=== PATIENT | female | born 1925 | race Caucasian/White ===

== ENCOUNTER 2016-07-08 17:21 | Emergency (ER) | payer OTHER ==
--- NOTE | 2016-07-08 20:50 | ED ORDER SUMMARY ---
..... Patient: KLAUS PEREZ OrderSheet [facility] VisitID: [id number] [place] [address] 89y, F Registration Date/Time: 07/08/2016 ORDER SHEET Weight: 92.9 kg (stated) Allergies: No Known Drug Allergy GENERAL ORDERS: UA-Culture if indicated Urgent (minicath) (18:30 07/08/2016 Jaja STRONG) (Ack 18:33 John) PICC Insertion (19:55 07/08/2016 Jaja STRONG) (Ack 20:16 Jessica) MEDICATION ORDERS: IV FLUIDS: Invanz IV 1 gm/50mL (NOW) (20:13 07/08/2016 Jaja STRONG) (20:39 Judson R.N.) ORDER SHEET NOTES: [Electronically signed by Jc Clements MD (14:11 07/09/2016)] [Electronically signed by Dejon Becker R.N. (20:18 07/09/2016)] [Electronically locked/signed by Dejon Becker R.N. (20:18 07/09/2016)]
--- NOTE | 2016-07-08 20:50 | ED NURSING NOTES ---
Clinical Report - Nurses [facility] [address] [place] [address] 07/08/2016 17:21 Patient: KLAUS PEREZ TRIAGE Triage time 17:50 Jul 08 2016. Acuity: LEVEL 4. Chief Complaint: (need IV). --17:57 Dejon Becker R.N. 17:50 07/08/16. BP: 113/80. HR: 71. RR: 18. O2 saturation: 96%. Temp: 98 F. Pain level now 11/07. --17:57 Dejon Becker R.N. Weight: 92.9 kg stated. Height/Length: 60 inches Per Patient. BMI: 40. --17:57 Dejon Becker R.N. Medications Carvedilol Phosphate ER Oral. --17:53 Dejon Becker R.N. Cefuroxime Axetil Oral. --17:53 Dejon Becker R.N. Cholecalciferol Oral. --17:53 Dejon Becker R.N. Citalopram Hydrobromide Oral. --17:54 Dejon Becker R.N. Clopidogrel Bisulfate Oral. --17:54 Dejon Becker R.N. Cranberry Oral. --17:54 Dejon Becker R.N. Furosemide Oral. --17:54 Dejon Becker R.Kevin. Gabapentin Oral. --17:54 Dejon Becker R.N. Levothyroxine Sodium Oral. --17:55 Dejon Becker R.N. Miconazole Nitrate External. --17:55 Dejon Becker R.N. Mirtazapine Oral. --17:55 Dejon Becker R.N. Potassium Chloride Oral. --17:55 Dejon Becker R.N. Primidone Oral. --17:55 Dejon Becker R.N. Probiotic. --17:56 Dejon Becker R.N. Rifaximin Oral. --17:56 Dejon Becker R.N. Tramadol HCL Oral. --17:56 Dejon Becker R.N. Allergies No Known Drug Allergy. --17:56 Dejon Becker R.N. History Arrived by private vehicle. Historian: patient and family. ( Pt arrives from clinic was told she needed an IV for 14 day course of abx for UTI. Pt is alert and oriented in no obvious distress). 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 SOCIAL HX: Never smoker. No alcohol use or drug use. --17:57 Dejon Becker R.N. PROBLEMS: Pneumonia. Abnormal Test. Chest Pain. Arrhythmia. Atrial Fibrillation. Thyroid Disease. Hypertension. Hyperlipidemia. --17:56 Dejon Becker R.N. Interventions ID band on patient. To treatment room. --17:57 Dejon Becker R.N. NURSING PROGRESS NOTES Monitoring of patient in place. Patient gowned. Reassurance given. Two patient identifiers checked. Call light placed in reach. Side rails up x 1. ( straight cath performed sterile technique, pt tolerated well). --18:43 Dejon Becker R.N. 18:43 07/08/16. BP: 124/86. HR: 96. RR: 18. O2 saturation: 96%. --18:44 Dejon Becker R.N. 20:39 07/08/2016 Site #1 started via IV in the right hand with an 22g angiocath, with aseptic technique and good blood return; three attempts. Saline lock flushed with saline. --20:39 Dejon Becker R.N. 20:39 07/08/2016 Invanz IVP 1 gm given over 30 minute(s) via site #1. Allergies verified and confirmed 5 rights. IV patency established. IV site checked: no pain, redness, or swelling. IV flushed thoroughly pre- and post-medication administration. IVP given by RN. --20:39 Dejon Becker R.N. DISPOSITION / DISCHARGE Departure time: 2113. Condition at departure: improved. No learning barriers present. Discharge instructions provided and reviewed with the patient and family. Reviewed referrals (PCP). The patient was discharged by the physician. She was discharged home and accompanied by family. She left the Emergency Department in a wheelchair and via private vehicle. Family member driving. ( Pt left with family, verbalized understanding to follow up with PCP in the AM regarding follow up IV abx). --:27 Dejon Becker R.N. 21:25 07/08/16. BP: 124/86. HR: 68. RR: 18. O2 saturation: 98%. Temp: 98.8 F. Pain level now 5/10. --21:27 Dejon Becker R.N. 21:27 07/08/2016 Site #1 removed upon discharge. Bandage applied. --:27 Dejon Becker R.N. Locked/Released at 07/09/2016 20:19 by Dejon Becker R.N.
--- NOTE | 2016-07-08 20:50 | ED CLINICAL REPORT ---
Clinical Report - Physicians/Mid Levels [facility] [address] [place] [address] 07/08/2016 17:21 Patient: KLAUS PEREZ Time Seen: 18:10. Arrived- By private vehicle. Historian- patient. CPT: ER phys charges level 4 (#[id number]). HISTORY OF PRESENT ILLNESS Chief Complaint: Sent to ER for persistent UTI that has culture results showing E. Coli resistent to all po meds. Pt. is with her Son-in-Law who states that they were sent to the ER to get a Picc line and set up for home infusion of IV antibiotics. ( No call came into the ER from the above described clinic stating the problem and need for treatment.). This started today and is still present. At its maximum, severity described as moderate. When seen in the E.D., severity described as moderate. Modifying factors. Not worsened by anything. Not relieved by anything. (Dysuria). Similar symptoms previously: Several times, as bad. Diagnosis: (UTI). Recent medical care: Not recently seen/assessed. REVIEW OF SYSTEMS No fever, abdominal pain, nausea, vomiting or diarrhea. No chills, skin rash, back pain, chills or fatigue. No fever or weakness. She has had difficulty with urination. mild dysuria. All systems otherwise negative, except as recorded above. PAST HISTORY Pneumonia. Abnormal Test. Chest Pain. Arrhythmia. Atrial Fibrillation. Thyroid Disease. Hypertension. Hyperlipidemia. Medications: Tramadol HCL Oral. Rifaximin Oral. Probiotic. Primidone Oral. Potassium Chloride Oral. Mirtazapine Oral. Miconazole Nitrate External. Levothyroxine Sodium Oral. Gabapentin Oral. Furosemide Oral. Cranberry Oral. Clopidogrel Bisulfate Oral. Citalopram Hydrobromide Oral. Cholecalciferol Oral. Cefuroxime Axetil Oral. Carvedilol Phosphate ER Oral. Allergies: No Known Drug Allergy. SOCIAL HISTORY Never smoker. No alcohol use or drug use. ADDITIONAL NOTES The nursing notes have been reviewed. PHYSICAL EXAM Vital Signs: 07/08/2016 17:50 BP: 113/80. HR: 71. RR: 18. O2 saturation: 96%. Temp: 98 F. Appearance: Alert. No acute distress. Eyes: Eyes normal inspection. ENT: Pharynx normal. Neck: Normal inspection. CVS: Normal heart rate and rhythm. Heart sounds normal. Pulses normal. Respiratory: No respiratory distress. Breath sounds normal. Chest nontender. Abdomen: No visible injury. Soft and nontender. Back: Normal inspection. No CVA tenderness. Skin: Normal skin color. No rash. Extremities: Extremities exhibit normal ROM. Neuro: Oriented X 3. LABS, X-RAYS, AND EKG Laboratory Tests: UA-Culture if indicated: (GERARDO: 07/08/2016 18:40) ( MsgRcvd 07/08/2016 19:05) Final results Test Result Flag Units (Reference) URINE COLOR YELLOW URINE APPEARANCE CLEAR URINE GLUCOSE NEGATIVE (NEGATIVE) URINE BILIRUBIN NEGATIVE (NEGATIVE) URINE KETONE NEGATIVE (NEGATIVE) URINE SPECIFIC GRAVITY 1.010 (1.010-1.030) URINE PH 6.0 (5.0-8.0) URINE PROTEIN NEGATIVE (NEGATIVE) URINE UROBILINOGEN 0.2 EU/dL (0.2-1.0) URINE NITRITE POSITIVE (NEGATIVE) URINE BLOOD NEGATIVE (NEGATIVE) URINE LEUK ESTERASE NEGATIVE (NEGATIVE) URINE RBC 1-3 rbc/hpf (0-1) URINE WBC 5-10 wbc/hpf (0-1) URINE EPITHELIAL CELLS 0-1 EPI/hpf (0-5) URINE BACTERIA MANY (4+) (NONE SEEN) URINE COMMENT CULTURE INDICATED URINE CULTURES ARE SET-UP BASED ON THE FOLLOWING CRITERIA:POSITIVE NITRITEPOSITIVE LEUKOCYTE ESTERASEGREATER THAN 10 WHITE BLOOD CELLSMODERATE (2+) OR GREATER BACTERIA Culture, Urine: (GERARDO: 07/08/2016 18:40) ( MsgRcvd 07/09/2016 10:25) IP Test Result Flag Units (Reference) CULTURE, URINE DATE: 07/09/16 PRELIM REPORT: PRELIMINARY REPORT #1 -- COLI QUANTITATIVE URINE GROWTH: GREATER THAN 100,000 CFU/mL ID AND SENS TO FOLLOW: IDENTIFICATION AND SENSITIVITY TO FOLLOW . PROGRESS AND PROCEDURES Course of Care: Reviewed lab results brought in by patient. A UA done 5 days ago showed a UTI in the office so ceftin was started. The culture results from that urine came back today showing resistence to some but not all cephalosporins. Pt clinically did not think she was much better since starting the ceftin. A UA was done in the ER to confirm a UTI still being present after the ceftin treatment. The UA was positive in the ER so it was assumed to be caused by the same resistant E.Coli cultured 5 days ago. non-toxic IV heplock Invanz 1g IV Patient is stable. Pt made aware of the need to get PCP to set up Picc and abx tomorrow. This cannot be done in the ER without the hospitalist taking over care. Patient/family counseled. Disposition: Discharged. Condition: stable. CLINICAL IMPRESSION Resistant E. Coli urinary tract infection. In need of out patient IV antibiotics. INSTRUCTIONS Warnings: Further evaluation is necessary. Follow-up: Follow up with your doctor tomorrow in one day. Call for the next available appointment. Reason for referral: IV antibiotics for home. Understanding of the discharge instructions verbalized by patient and family. Expected course of illness and discharge instructions reviewed with and understanding was verbalized by patient and relative (Son-in-Law). (Electronically signed by Jc Clements MD 07/09/2016 14:11) Addenda for KLAUS PEREZ VisitID: [id number] Date: 07/08/2016 07/09/2016 19:43 discharge instructions were for pt to follow-up with her doctor in 1 day for referral for IV antibiotics @ home for her resistant UTI; was given Invanz 1 gm IVPB during her ED visit (Electronically signed by Carol Mireles R.N. - 07/09/2016 19:43)
--- NOTE | 2016-07-08 20:50 | ED NURSING NOTES ---
Clinical Report - Nurses [facility] [address] [place] [address] 07/08/2016 17:21 Patient: KLAUS PEREZ TRIAGE Triage time 17:50 Jul 08 2016. Acuity: LEVEL 4. Chief Complaint: (need IV). --17:57 Dejon Becker R.N. 17:50 07/08/16. BP: 113/80. HR: 71. RR: 18. O2 saturation: 96%. Temp: 98 F. Pain level now 11/07. --17:57 Dejon Becker R.N. Weight: 92.9 kg stated. Height/Length: 60 inches Per Patient. BMI: 40. --17:57 Dejon Becker R.N. Medications Carvedilol Phosphate ER Oral. --17:53 Dejon Becker R.N. Cefuroxime Axetil Oral. --17:53 Dejon Becker R.N. Cholecalciferol Oral. --17:53 Dejon Bekcer R.N. Citalopram Hydrobromide Oral. --17:54 Dejon Becker R.N. Clopidogrel Bisulfate Oral. --17:54 Dejon Becker R.N. Cranberry Oral. --17:54 Dejon Becker R.N. Furosemide Oral. --17:54 Dejon Becker R.Kevin. Gabapentin Oral. --17:54 Dejon Becker R.N. Levothyroxine Sodium Oral. --17:55 Dejon Becker R.N. Miconazole Nitrate External. --17:55 Dejon Becker R.N. Mirtazapine Oral. --17:55 Dejon Becker R.N. Potassium Chloride Oral. --17:55 Dejon Becker R.N. Primidone Oral. --17:55 Dejon Becker R.N. Probiotic. --17:56 Dejon Becker R.N. Rifaximin Oral. --17:56 Dejon Becker R.N. Tramadol HCL Oral. --17:56 Dejon Becker R.N. Allergies No Known Drug Allergy. --17:56 Dejon Becker R.N. History Arrived by private vehicle. Historian: patient and family. ( Pt arrives from clinic was told she needed an IV for 14 day course of abx for UTI. Pt is alert and oriented in no obvious distress). 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 SOCIAL HX: Never smoker. No alcohol use or drug use. --17:57 Dejon Becker R.N. PROBLEMS: Pneumonia. Abnormal Test. Chest Pain. Arrhythmia. Atrial Fibrillation. Thyroid Disease. Hypertension. Hyperlipidemia. --17:56 Dejon Becker R.N. Interventions ID band on patient. To treatment room. --17:57 Dejon Becker R.N. NURSING PROGRESS NOTES Monitoring of patient in place. Patient gowned. Reassurance given. Two patient identifiers checked. Call light placed in reach. Side rails up x 1. ( straight cath performed sterile technique, pt tolerated well). --18:43 Dejon Becker R.N. 18:43 07/08/16. BP: 124/86. HR: 96. RR: 18. O2 saturation: 96%. --18:44 Dejon Becker R.N. 20:39 07/08/2016 Site #1 started via IV in the right hand with an 22g angiocath, with aseptic technique and good blood return; three attempts. Saline lock flushed with saline. --20:39 Dejon Becker R.N. 20:39 07/08/2016 Invanz IVP 1 gm given over 30 minute(s) via site #1. Allergies verified and confirmed 5 rights. IV patency established. IV site checked: no pain, redness, or swelling. IV flushed thoroughly pre- and post-medication administration. IVP given by RN. --20:39 Dejon Becker R.N. DISPOSITION / DISCHARGE Departure time: 2113. Condition at departure: improved. No learning barriers present. Discharge instructions provided and reviewed with the patient and family. Reviewed referrals (PCP). The patient was discharged by the physician. She was discharged home and accompanied by family. She left the Emergency Department in a wheelchair and via private vehicle. Family member driving. ( Pt left with family, verbalized understanding to follow up with PCP in the AM regarding follow up IV abx). --:27 Dejon Becker R.N. 21:25 07/08/16. BP: 124/86. HR: 68. RR: 18. O2 saturation: 98%. Temp: 98.8 F. Pain level now 5/10. --21:27 Dejon Becker R.N. 21:27 07/08/2016 Site #1 removed upon discharge. Bandage applied. --:27 Dejon Becker R.N. Locked/Released at 07/09/2016 20:19 by Dejon Becker R.N.
--- NOTE | 2016-07-08 20:50 | ED CLINICAL REPORT ---
Clinical Report - Physicians/Mid Levels [facility] [address] [place] [address] 07/08/2016 17:21 Patient: KLAUS PEREZ Time Seen: 18:10. Arrived- By private vehicle. Historian- patient. CPT: ER phys charges level 4 (#[id number]). HISTORY OF PRESENT ILLNESS Chief Complaint: Sent to ER for persistent UTI that has culture results showing E. Coli resistent to all po meds. Pt. is with her Son-in-Law who states that they were sent to the ER to get a Picc line and set up for home infusion of IV antibiotics. ( No call came into the ER from the above described clinic stating the problem and need for treatment.). This started today and is still present. At its maximum, severity described as moderate. When seen in the E.D., severity described as moderate. Modifying factors. Not worsened by anything. Not relieved by anything. (Dysuria). Similar symptoms previously: Several times, as bad. Diagnosis: (UTI). Recent medical care: Not recently seen/assessed. REVIEW OF SYSTEMS No fever, abdominal pain, nausea, vomiting or diarrhea. No chills, skin rash, back pain, chills or fatigue. No fever or weakness. She has had difficulty with urination. mild dysuria. All systems otherwise negative, except as recorded above. PAST HISTORY Pneumonia. Abnormal Test. Chest Pain. Arrhythmia. Atrial Fibrillation. Thyroid Disease. Hypertension. Hyperlipidemia. Medications: Tramadol HCL Oral. Rifaximin Oral. Probiotic. Primidone Oral. Potassium Chloride Oral. Mirtazapine Oral. Miconazole Nitrate External. Levothyroxine Sodium Oral. Gabapentin Oral. Furosemide Oral. Cranberry Oral. Clopidogrel Bisulfate Oral. Citalopram Hydrobromide Oral. Cholecalciferol Oral. Cefuroxime Axetil Oral. Carvedilol Phosphate ER Oral. Allergies: No Known Drug Allergy. SOCIAL HISTORY Never smoker. No alcohol use or drug use. ADDITIONAL NOTES The nursing notes have been reviewed. PHYSICAL EXAM Vital Signs: 07/08/2016 17:50 BP: 113/80. HR: 71. RR: 18. O2 saturation: 96%. Temp: 98 F. Appearance: Alert. No acute distress. Eyes: Eyes normal inspection. ENT: Pharynx normal. Neck: Normal inspection. CVS: Normal heart rate and rhythm. Heart sounds normal. Pulses normal. Respiratory: No respiratory distress. Breath sounds normal. Chest nontender. Abdomen: No visible injury. Soft and nontender. Back: Normal inspection. No CVA tenderness. Skin: Normal skin color. No rash. Extremities: Extremities exhibit normal ROM. Neuro: Oriented X 3. LABS, X-RAYS, AND EKG Laboratory Tests: UA-Culture if indicated: (GERARDO: 07/08/2016 18:40) ( MsgRcvd 07/08/2016 19:05) Final results Test Result Flag Units (Reference) URINE COLOR YELLOW URINE APPEARANCE CLEAR URINE GLUCOSE NEGATIVE (NEGATIVE) URINE BILIRUBIN NEGATIVE (NEGATIVE) URINE KETONE NEGATIVE (NEGATIVE) URINE SPECIFIC GRAVITY 1.010 (1.010-1.030) URINE PH 6.0 (5.0-8.0) URINE PROTEIN NEGATIVE (NEGATIVE) URINE UROBILINOGEN 0.2 EU/dL (0.2-1.0) URINE NITRITE POSITIVE (NEGATIVE) URINE BLOOD NEGATIVE (NEGATIVE) URINE LEUK ESTERASE NEGATIVE (NEGATIVE) URINE RBC 1-3 rbc/hpf (0-1) URINE WBC 5-10 wbc/hpf (0-1) URINE EPITHELIAL CELLS 0-1 EPI/hpf (0-5) URINE BACTERIA MANY (4+) (NONE SEEN) URINE COMMENT CULTURE INDICATED URINE CULTURES ARE SET-UP BASED ON THE FOLLOWING CRITERIA:POSITIVE NITRITEPOSITIVE LEUKOCYTE ESTERASEGREATER THAN 10 WHITE BLOOD CELLSMODERATE (2+) OR GREATER BACTERIA Culture, Urine: (GERARDO: 07/08/2016 18:40) ( MsgRcvd 07/09/2016 10:25) IP Test Result Flag Units (Reference) CULTURE, URINE DATE: 07/09/16 PRELIM REPORT: PRELIMINARY REPORT #1 -- COLI QUANTITATIVE URINE GROWTH: GREATER THAN 100,000 CFU/mL ID AND SENS TO FOLLOW: IDENTIFICATION AND SENSITIVITY TO FOLLOW . PROGRESS AND PROCEDURES Course of Care: Reviewed lab results brought in by patient. A UA done 5 days ago showed a UTI in the office so ceftin was started. The culture results from that urine came back today showing resistence to some but not all cephalosporins. Pt clinically did not think she was much better since starting the ceftin. A UA was done in the ER to confirm a UTI still being present after the ceftin treatment. The UA was positive in the ER so it was assumed to be caused by the same resistant E.Coli cultured 5 days ago. non-toxic IV heplock Invanz 1g IV Patient is stable. Pt made aware of the need to get PCP to set up Picc and abx tomorrow. This cannot be done in the ER without the hospitalist taking over care. Patient/family counseled. Disposition: Discharged. Condition: stable. CLINICAL IMPRESSION Resistant E. Coli urinary tract infection. In need of out patient IV antibiotics. INSTRUCTIONS Warnings: Further evaluation is necessary. Follow-up: Follow up with your doctor tomorrow in one day. Call for the next available appointment. Reason for referral: IV antibiotics for home. Understanding of the discharge instructions verbalized by patient and family. Expected course of illness and discharge instructions reviewed with and understanding was verbalized by patient and relative (Son-in-Law). (Electronically signed by Jc Clements MD 07/09/2016 14:11) Addenda for KLAUS PEREZ VisitID: [id number] Date: 07/08/2016 07/09/2016 19:43 discharge instructions were for pt to follow-up with her doctor in 1 day for referral for IV antibiotics @ home for her resistant UTI; was given Invanz 1 gm IVPB during her ED visit (Electronically signed by Carol Mireles R.N. - 07/09/2016 19:43)
--- NOTE | 2016-07-08 20:50 | ED ORDER SUMMARY ---
..... Patient: KLAUS PEREZ OrderSheet [facility] VisitID: [id number] [place] [address] 89y, F Registration Date/Time: 07/08/2016 ORDER SHEET Weight: 92.9 kg (stated) Allergies: No Known Drug Allergy GENERAL ORDERS: UA-Culture if indicated Urgent (minicath) (18:30 07/08/2016 Jaja STRONG) (Ack 18:33 John) PICC Insertion (19:55 07/08/2016 Jaja STRONG) (Ack 20:16 Jessica) MEDICATION ORDERS: IV FLUIDS: Invanz IV 1 gm/50mL (NOW) (20:13 07/08/2016 Jaja STRONG) (20:39 Judson R.N.) ORDER SHEET NOTES: [Electronically signed by Jc Clements MD (14:11 07/09/2016)] [Electronically signed by Dejon Becker R.N. (20:18 07/09/2016)] [Electronically locked/signed by Dejon Becker R.N. (20:18 07/09/2016)]
--- NOTE | 2016-07-09 20:19 | ED DISCHARGE INSTRUCTIONS ---
Patient: KLAUS PEREZ General Instructions [facility] VisitID: [id number] [place] [address] 89y, F Registration Date/Time: 07/08/2016 Resistant E. Coli urinary tract infection. In need of out patient IV antibiotics. INSTRUCTIONS Warnings: Further evaluation is necessary. Follow-up: Follow up with your doctor tomorrow in one day. Call for the next available appointment. Reason for referral: IV antibiotics for home. Understanding of the discharge instructions verbalized by patient and family. Expected course of illness and discharge instructions reviewed with and understanding was verbalized by patient and relative (Son-in-Law). (Electronically signed by Jc Clements MD 07/09/2016 14:11)
--- NOTE | 2016-07-09 20:19 | ED MED RECONCILIATION SUMMARY ---
Patient: KLAUS PEREZ Medication Reconciliation Report [facility] VisitID: [id number] [address] [place] [address] 89y, F Registration Date/Time: 07/08/2016 Weight: 92.9 kg Height/Length: 60 in. BMI: 40.0 ALLERGIES: No Known Drug Allergy The patient's Home Medications are listed below: THE FOLLOWING MEDICATIONS NEED TO BE RECONCILED: Carvedilol Phosphate ER Oral Cefuroxime Axetil Oral Cholecalciferol Oral Citalopram Hydrobromide Oral Clopidogrel Bisulfate Oral Cranberry Oral Furosemide Oral Gabapentin Oral Levothyroxine Sodium Oral Miconazole Nitrate External Mirtazapine Oral Potassium Chloride Oral Primidone Oral Probiotic Rifaximin Oral Tramadol HCL Oral The source(s) of the original Home Medication information: Not obtained. The following Medications were given to the patient in the Emergency Department: Invanz [IVP] IVP 1 gm, administered: 07/08/2016 8:39:00 PM The following Medications were prescribed to the patient: None.
--- NOTE | 2016-07-09 20:19 | ED MAR SUMMARY ---
..... Medication Administration Record [facility] [address] [place] [address] Patient: KLAUS PEREZ Visit ID: [id number] 89y, F Weight: 92.9 kg Height/Length: 60 in BMI: 40 ALLERGIES: No Known Drug Allergy Given 20:39 07/08/2016 Dejon Becker R.N. Medication Administered: INVANZ [IVP], Dose: 1 gm IVP over 30 minute(s), Site: #1 right hand. Medication Ordered: Invanz IV 1 gm/50mL (NOW).
--- NOTE | 2016-07-09 20:19 | ED MAR SUMMARY ---
..... Medication Administration Record [facility] [address] [place] [address] Patient: KLAUS PEREZ Visit ID: [id number] 89y, F Weight: 92.9 kg Height/Length: 60 in BMI: 40 ALLERGIES: No Known Drug Allergy Given 20:39 07/08/2016 Dejon Becker R.N. Medication Administered: INVANZ [IVP], Dose: 1 gm IVP over 30 minute(s), Site: #1 right hand. Medication Ordered: Invanz IV 1 gm/50mL (NOW).
--- NOTE | 2016-07-09 20:19 | ED DISCHARGE INSTRUCTIONS ---
Patient: KLAUS PEREZ General Instructions [facility] VisitID: [id number] [place] [address] 89y, F Registration Date/Time: 07/08/2016 Resistant E. Coli urinary tract infection. In need of out patient IV antibiotics. INSTRUCTIONS Warnings: Further evaluation is necessary. Follow-up: Follow up with your doctor tomorrow in one day. Call for the next available appointment. Reason for referral: IV antibiotics for home. Understanding of the discharge instructions verbalized by patient and family. Expected course of illness and discharge instructions reviewed with and understanding was verbalized by patient and relative (Son-in-Law). (Electronically signed by Jc Clements MD 07/09/2016 14:11)
--- NOTE | 2016-07-09 20:19 | ED MED RECONCILIATION SUMMARY ---
Patient: KLAUS PEREZ Medication Reconciliation Report [facility] VisitID: [id number] [address] [place] [address] 89y, F Registration Date/Time: 07/08/2016 Weight: 92.9 kg Height/Length: 60 in. BMI: 40.0 ALLERGIES: No Known Drug Allergy The patient's Home Medications are listed below: THE FOLLOWING MEDICATIONS NEED TO BE RECONCILED: Carvedilol Phosphate ER Oral Cefuroxime Axetil Oral Cholecalciferol Oral Citalopram Hydrobromide Oral Clopidogrel Bisulfate Oral Cranberry Oral Furosemide Oral Gabapentin Oral Levothyroxine Sodium Oral Miconazole Nitrate External Mirtazapine Oral Potassium Chloride Oral Primidone Oral Probiotic Rifaximin Oral Tramadol HCL Oral The source(s) of the original Home Medication information: Not obtained. The following Medications were given to the patient in the Emergency Department: Invanz [IVP] IVP 1 gm, administered: 07/08/2016 8:39:00 PM The following Medications were prescribed to the patient: None.
== END 2016-07-08 21:14 | disposition home or self-care (01) ==
LOC: ED SRH 17:21
DX: N39.0 Urinary tract infection, site not specified (principal); B96.20 Unspecified Escherichia coli [E. coli] as the cause of diseases classified elsewhere; Z16.30 Resistance to unspecified antimicrobial drugs; I10 Essential (primary) hypertension; I48.91 Unspecified atrial fibrillation; E07.9 Disorder of thyroid, unspecified; Z79.899 Other long term (current) drug therapy
CPT/HCPCS: 90004; 90148; 90469

== ENCOUNTER 2016-07-21 16:46 | Outpatient (CLI) | payer OTHER | END 2016-07-21 23:00 | disposition home or self-care (01) | LOC: SDP SRH 16:46 | PROC: 05PYX3Z Removal of Infusion Device from Upper Vein, External Approach (ICD-10-PCS; principal; 2016-07-21) | DX: Z45.2 Encounter for adjustment and management of vascular access device (principal) ==

== ENCOUNTER 2016-08-31 20:15 | Inpatient (IN) | payer OTHER ==
[~2016-08-31] VITALS: Ht 157.5 cm; Wt 98.2 kg
--- NOTE | 2016-08-31 23:47 | DIAGNOSTIC IMAGING REPORT ---
PROCEDURE: CT ABDOMEN/PELVIS W/O CONTRAST INDICATION: ABDOMINAL PAIN TECHNIQUE: Axial CT images were obtained through the abdomen and pelvis without IV contrast. Coronal and sagittal reformations were created. COMPARISON: None. FINDINGS: Trace right pleural effusion and minor interstitial stranding. Moderate cardiomegaly. No hiatal hernia. Surgically absent gallbladder. The unenhanced appearance of the liver, adrenal glands, kidneys with bilateral renal cysts, pancreas and spleen is normal. The abdominal aorta is normal in its course and caliber with mild to moderate calcific atherosclerosis. There are no suspicious calcifications, retroperitoneal adenopathy or masses. The stomach, upper bowel loops, and mesentery are normal. There has likely been a ventral hernia repair with mesh No free fluid or inflammation. Redundant sigmoid colon with extensive diverticulosis. No acute inflammation. The uterus, ovaries, and appendix are surgically absent. The unenhanced appearance of the urinary bladder, pelvic vessels, and pelvic small bowel loops is normal. No suspicious calcifications, free pelvic fluid or mass. Superior endplate central depression of L1 and to a lesser extent T12. 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 Severe disc height loss L5-S1 IMPRESSION: 1. No CT evidence of acute process. 2. Extensive sigmoid diverticulosis. 3. Post appendectomy, hysterectomy, oophorectomy, cholecystectomy. 4. Moderate cardiomegaly and trace right effusion. 5. Bilateral renal cysts. 6. Discussed with Dr. Orellana in the emergency room. All CT scans at this facility use dose modulation, iterative reconstruction, and/or weight-based dosing when appropriate to reduce radiation dose to as low as reasonably achievable.
[2016-09-01] VITALS (7 sets, daily range): BP systolic 112–139; BP diastolic 52–72
--- NOTE | 2016-09-01 00:53 | ED ORDER SUMMARY ---
..... Patient: KLAUS PEREZ OrderSheet [facility] VisitID: [id number] [place] [address] 89y, F Registration Date/Time: 08/31/2016 ORDER SHEET Weight: 97.0 kg (stated) Allergies: No Known Drug Allergy GENERAL ORDERS: Peoplesoft Programmer (Continuous) (20:35 08/31/2016 Renee STRONG) (20:53 MCook R.N.) Lipase Urgent (20:35 08/31/2016 Renee STRONG) (21:09 MCook R.N.) UA-Culture if indicated Urgent (20:35 08/31/2016 Renee STRONG) (21:21 MCook R.N.) Cardiac Panel Stat (20:35 08/31/2016 Renee STRONG) (21:09 MCook R.N.) PT with INR Urgent (20:35 08/31/2016 Renee STRONG) (21:09 MCook R.N.) Pulse oximeter (20:35 08/31/2016 Renee STRONG) (20:53 MCook R.N.) EKG - ER Stat (20:35 08/31/2016 Renee STRONG) (20:53 MCook R.N.) - (CATH UA IF WE DON'T ALREADY HAVE ONE) (21:28 08/31/2016 Jana STRONG) (21:36 MCook R.N.) Lactate, Serum Urgent (21:30 08/31/2016 Jana STRONG) (21:36 MCook R.N.) BNP Urgent (22:38 08/31/2016 Jana STRONG) (Ack 22:41 Jessica) (22:55 MCook R.N.) CT Abd/Pel wo Cont Urgent (22:40 08/31/2016 Jana STRONG) (Ack 22:41 Jessica) (23:26 MCook R.N.) - (In and out NG (if blood present)) (23:16 08/31/2016 Jana STRONG) (0:38 MCook R.N.) Friend Catheter (02:02 09/01/2016 Jana STRONG) (Cancelled: Patient Refusal2:05 Shila Moody) MEDICATION ORDERS: IV FLUIDS: IV Saline Lock (20:35 08/31/2016 Renee STRONG) (20:53 Master WangNRema) Zofran IV 8 mg (NOW) (20:36 08/31/2016 Renee STRONG) (21:37 Master Moody) IV NS : initial bolus none -, then 500 mL/hr for 2h (NOW); Urgent (22:38 08/31/2016 Jana STRONG) (22:56 Master Martino.Alyssa) ORDER SHEET NOTES: [Electronically signed by Trina Long R.N. (02:47 09/01/2016)] [Electronically signed by Kwesi Orellana MD (10:11 09/01/2016)] [Electronically locked/signed by Trina Long R.N. (02:47 09/01/2016)]
--- NOTE | 2016-09-01 00:53 | ED CLINICAL REPORT ---
Clinical Report - Physicians/Mid Levels [facility] [address] [place] [address] 08/31/2016 20:15 Patient: KLAUS PEREZ Time Seen: 21:20. Historian- patient. HISTORY OF PRESENT ILLNESS Chief Complaint: ABDOMINAL PAIN and Near Syncope. At its maximum, severity described as moderate. When seen in the E.D., severity described as moderate. This started 3 days; Dizzy, near sycope and is still present. It was gradual in onset and has been constant. It is described as "pain". No radiation. It is described as generalized in location. The patient has had nausea. No vomiting or diarrhea. (Was taking peptobismol). Similar symptoms previously: None. REVIEW OF SYSTEMS The patient has had a hysterectomy. No constipation, black stools, hematemesis or difficulty with urination or urination. No pain with urination, fever, headache, fever or eye irritation. No sore throat, chest pain, cough, difficulty breathing or vomiting. No urinary frequency, skin rash or head injury. The patient has had abdominal pain and nausea. All systems otherwise negative, except as recorded above. PAST HISTORY PCP: Usolteseva PROBLEMS: Pneumonia. Abnormal Test. Chest Pain. Arrhythmia. Atrial Fibrillation. Thyroid Disease. Hypertension.--20:26 Asim Pryor R.N. ADDITIONAL SURGERIES: Appendectomy. CA of uterus=hysterectomy. Cholecystectomy. Oophorectomy. Salpingectomy. Tonsillectomy & Adenoidectomy. SOCIAL HISTORY Never smoker. ADDITIONAL NOTES The nursing notes have been reviewed. PHYSICAL EXAM Vital Signs: 09/01/2016 02:44 BP: 136/76. HR: 84. RR: 16. O2 saturation: 95%. Temp: 98.4 F. 09/01/2016 01:00 BP: 136/57. HR: 84. RR: 16. O2 saturation: 95%. Pain level now: 0. 09/01/2016 00:00 BP: 146/89. HR: 92. O2 saturation: 97%. Pain level now: . 08/31/2016 22:36 BP: 139/63. HR: 91. RR: 14. O2 saturation: 94%. Pain level now: 0/10. 08/31/2016 21:21 BP: 115/67. HR: 113. RR: 15. O2 saturation: 97%. Pain level now: 0/10. 08/31/2016 20:24 BP: 115/67. HR: 99. RR: 16. O2 saturation: 95%. Temp: 98.7 F. Pain level now: 0/10. Appearance: Alert. Patient in mild distress. Eyes: No scleral icterus. ENT: Pharynx normal. Neck: Normal inspection. CVS: Abnormal rhythm. Respiratory: No respiratory distress. Breath sounds normal. Abdomen: Moderate tenderness diffusely. Guarding present diffusely. Bowel sounds normal. No rebound tenderness. Rectal: (Stool is black and definitely heme positive. It is not sticky (pt has been taking peptobismol.)). Skin: Skin warm. Normal skin color. Extremities: Extremities exhibit normal ROM. No lower extremity edema. LABS, X-RAYS, AND EKG Abdominal CT: No acute disease. Laboratory Tests: [id number]: (GERARDO: 09/01/2016 07:09) ( [facility] [place] 09/01/[place] 07:19) Final results Test Result Flag Units (Reference) HEMATOCRIT 25.4 L % (36.0-46.0) [id number]: (GERARDO: 09/01/2016 03:00) ( [facility] [place] 09/01/2016 03:10) Final results Test Result Flag Units (Reference) HEMATOCRIT 28.5 L % (36.0-46.0) Lactate, Serum: (GERARDO: 09/01/2016 08:42) ( [facility] [place] 09/01/2016 09:13) Final results Test Result Flag Units (Reference) LACTIC ACID 1.4 mmol/L (0.4-2.0) UA-Culture if indicated: (GERARDO: 08/31/2016 21:15) ( [facility] [place] 08/31/2016 21:45) Final results Test Result Flag Units (Reference) URINE COLOR YELLOW URINE APPEARANCE CLEAR URINE GLUCOSE NEGATIVE (NEGATIVE) URINE BILIRUBIN NEGATIVE (NEGATIVE) URINE KETONE NEGATIVE (NEGATIVE) URINE SPECIFIC GRAVITY 1.010 (1.010-1.030) URINE PH 6.0 (5.0-8.0) URINE PROTEIN NEGATIVE (NEGATIVE) URINE UROBILINOGEN 0.2 EU/dL (0.2-1.0) URINE NITRITE NEGATIVE (NEGATIVE) URINE BLOOD NEGATIVE (NEGATIVE) URINE LEUK ESTERASE NEGATIVE (NEGATIVE) URINE RBC NONE SEEN rbc/hpf (0-1) URINE WBC 0-1 wbc/hpf (0-1) URINE EPITHELIAL CELLS 0-1 EPI/hpf (0-5) URINE BACTERIA NONE SEEN (NONE SEEN) URINE COMMENT CULT NOT INDICATED URINE CULTURES ARE SET-UP BASED ON THE FOLLOWING CRITERIA:POSITIVE NITRITEPOSITIVE LEUKOCYTE ESTERASEGREATER THAN 10 WHITE BLOOD CELLSMODERATE (2+) OR GREATER BACTERIA CBC w Diff: (GERARDO: 08/31/2016 21:10) ( [facility] 08/31/2016 22:41) Final results Test Result Flag Units (Reference) WHITE BLOOD COUNT 14.0 H K/uL (4.5-11.5) RED BLOOD COUNT 3.29 L M/uL (4.00-5.20) HEMOGLOBIN 9.9 L gm/dL (12.0-16.0) HEMATOCRIT 30.6 L % (36.0-46.0) MEAN CELL VOLUME 93 fL (80-100) MEAN CORPUSCULAR HGB 30 pg (26-34) MEAN CORPUSCULAR HGB CONC 32 g/dL (31-37) RED CELL DISTRIBUTION WIDTH 15.7 H % (11.6-14.8) PLATELET COUNT Test not performed K/uL (150-400) Platelets clumped per smear review. Unable to determineaccurate platelet count. NEUTROPHIL % 78.6 H % (50-75) LYMPH % 8.4 L % (25-40) MONO % 9.5 % (3-14) EOSINOPHIL % 3.2 % (0-4) BASOPHIL % 0.3 % (0-2) PT with INR: (GERARDO: 08/31/2016 21:10) ( [facility] 08/31/2016 21:59) Final results Test Result Flag Units (Reference) INR 1.1 (0.8-1.2) Low Intensity Therapy: INR 1.5-2.0 PT range 18.5-23.1Mod.Intensity Therapy: INR 2.0-3.0 PT range 23.1-31.5High Intensity Therapy: INR 2.5-3.5 PT range 27.4-35.5High Intensity Therapy 2: INR 3.0-4.0 PT range 31.5-39.3 BNP: (GERARDO: 08/31/2016 21:50) ( [facility] 08/31/2016 23:05) Final results Test Result Flag Units (Reference) B-TYPE NATRIURETIC PEPTIDE 41.9 pg/ml (5-100) Lactate, Serum: (GERARDO: 08/31/2016 21:50) ( [facility] 08/31/2016 22:27) Final results Test Result Flag Units (Reference) LACTIC ACID 2.6 H mmol/L (0.4-2.0) Lipase: (GERARDO: 08/31/2016 21:10) ( [facility] 08/31/2016 21:36) Final results Test Result Flag Units (Reference) LIPASE 116 U/L (73-393) CHEM 13 PANEL: (GERARDO: 08/31/2016 21:10) ( [facility] [place] 08/31/2016 21:36) Final results Test Result Flag Units (Reference) GLUCOSE 122 H mg/dL (70-110) BUN 64 H mg/dL (7-18) CREATININE 1.0 mg/dL (0.6-1.3) Estimated GFR 55.49 mL/min Estimated GFR- >60 mL/min Note: Persistent reduction over 3 months in eGFR<60 mL/min/1.73 m2 defines CKD. Patients with eGFR values>=60 mL/min/1.73 m2 may also have CKD if evidence ofpersistent proteinuria. Additional information may be foundat www.kidney.org. SODIUM 146 H mmol/L (136-145) POTASSIUM 4.2 mmol/L (3.5-5.1) CHLORIDE 110 H mmol/L (98-107) CARBON DIOXIDE 27 mmol/L (21-32) CALCIUM 8.8 mg/dL (8.5-10.1) TOTAL PROTEIN 5.7 L g/dL (6.4-8.2) ALBUMIN 3.1 L g/dL (3.3-5.0) BILIRUBIN, TOTAL 0.4 mg/dL (0.0-1.0) ALKALINE PHOSPHATASE 92 U/L (46-116) AST (SGOT) 17 U/L (15-37) ALT (SGPT) 15 U/L (12-78) CPK 17 L U/L (24-260) MAGNESIUM 1.8 mg/dL (1.8-2.4) TROPONIN I <0.05 ng/mL (0.00-1.5) TROPONIN REFERENCE RANGE:<0.1 NEGATIVE0.1-1.5 INDETERMINANT>1.5 POSITIVE . PROGRESS AND PROCEDURES Course of Care: Lactate, needs UA 22:39 08/31/16. BUN 60 but CCR only 55. Will order IVF. Will order CT and consult with Rad re contrast. 23:15 08/31/16. Stool black, not stickey, strongly heme positive. Will do CT wo contrast. Can repeat with contrast if needed. 00:47 09/01/16. CT was negative, NG and OG could not be passed despite one attempt by the RN and two attempts by me. Pt was discussed with Dr Iraheta. He and I were concerned about the possibility of bowel ischemia although CT is re assuring. The plan was ICU admit, hydrate, oxygen and ulloa. Dr Solomon has come to the ED and has written admit orders. Disposition orders written. Disposition: Admitted. CLINICAL IMPRESSION ABDOMINAL PAIN GI BLEED ELEVATED LACTATE ATRIAL FIBRILLATION. (Electronically signed by Kwesi Orellana MD 09/01/2016 10:11)
--- NOTE | 2016-09-01 00:53 | ED CLINICAL REPORT ---
Clinical Report - Physicians/Mid Levels [facility] [address] [place] [address] 08/31/2016 20:15 Patient: KLAUS PEREZ Time Seen: 21:20. Historian- patient. HISTORY OF PRESENT ILLNESS Chief Complaint: ABDOMINAL PAIN and Near Syncope. At its maximum, severity described as moderate. When seen in the E.D., severity described as moderate. This started 3 days; Dizzy, near sycope and is still present. It was gradual in onset and has been constant. It is described as "pain". No radiation. It is described as generalized in location. The patient has had nausea. No vomiting or diarrhea. (Was taking peptobismol). Similar symptoms previously: None. REVIEW OF SYSTEMS The patient has had a hysterectomy. No constipation, black stools, hematemesis or difficulty with urination or urination. No pain with urination, fever, headache, fever or eye irritation. No sore throat, chest pain, cough, difficulty breathing or vomiting. No urinary frequency, skin rash or head injury. The patient has had abdominal pain and nausea. All systems otherwise negative, except as recorded above. PAST HISTORY PCP: Usolteseva PROBLEMS: Pneumonia. Abnormal Test. Chest Pain. Arrhythmia. Atrial Fibrillation. Thyroid Disease. Hypertension.--20:26 Asim Pryor R.N. ADDITIONAL SURGERIES: Appendectomy. CA of uterus=hysterectomy. Cholecystectomy. Oophorectomy. Salpingectomy. Tonsillectomy & Adenoidectomy. SOCIAL HISTORY Never smoker. ADDITIONAL NOTES The nursing notes have been reviewed. PHYSICAL EXAM Vital Signs: 09/01/2016 02:44 BP: 136/76. HR: 84. RR: 16. O2 saturation: 95%. Temp: 98.4 F. 09/01/2016 01:00 BP: 136/57. HR: 84. RR: 16. O2 saturation: 95%. Pain level now: 0. 09/01/2016 00:00 BP: 146/89. HR: 92. O2 saturation: 97%. Pain level now: . 08/31/2016 22:36 BP: 139/63. HR: 91. RR: 14. O2 saturation: 94%. Pain level now: 0/10. 08/31/2016 21:21 BP: 115/67. HR: 113. RR: 15. O2 saturation: 97%. Pain level now: 0/10. 08/31/2016 20:24 BP: 115/67. HR: 99. RR: 16. O2 saturation: 95%. Temp: 98.7 F. Pain level now: 0/10. Appearance: Alert. Patient in mild distress. Eyes: No scleral icterus. ENT: Pharynx normal. Neck: Normal inspection. CVS: Abnormal rhythm. Respiratory: No respiratory distress. Breath sounds normal. Abdomen: Moderate tenderness diffusely. Guarding present diffusely. Bowel sounds normal. No rebound tenderness. Rectal: (Stool is black and definitely heme positive. It is not sticky (pt has been taking peptobismol.)). Skin: Skin warm. Normal skin color. Extremities: Extremities exhibit normal ROM. No lower extremity edema. LABS, X-RAYS, AND EKG Abdominal CT: No acute disease. Laboratory Tests: [id number]: (GERARDO: 09/01/2016 07:09) ( [facility] [place] 07:19) Final results Test Result Flag Units (Reference) HEMATOCRIT 25.4 L % (36.0-46.0) [id number]: (GERARDO: 09/01/2016 03:00) ( [facility] 09/01/2016 03:10) Final results Test Result Flag Units (Reference) HEMATOCRIT 28.5 L % (36.0-46.0) Lactate, Serum: (GERARDO: 09/01/2016 08:42) ( [facility] 09/01/2016 09:13) Final results Test Result Flag Units (Reference) LACTIC ACID 1.4 mmol/L (0.4-2.0) UA-Culture if indicated: (GERARDO: 08/31/2016 21:15) ( [facility] 08/31/2016 21:45) Final results Test Result Flag Units (Reference) URINE COLOR YELLOW URINE APPEARANCE CLEAR URINE GLUCOSE NEGATIVE (NEGATIVE) URINE BILIRUBIN NEGATIVE (NEGATIVE) URINE KETONE NEGATIVE (NEGATIVE) URINE SPECIFIC GRAVITY 1.010 (1.010-1.030) URINE PH 6.0 (5.0-8.0) URINE PROTEIN NEGATIVE (NEGATIVE) URINE UROBILINOGEN 0.2 EU/dL (0.2-1.0) URINE NITRITE NEGATIVE (NEGATIVE) URINE BLOOD NEGATIVE (NEGATIVE) URINE LEUK ESTERASE NEGATIVE (NEGATIVE) URINE RBC NONE SEEN rbc/hpf (0-1) URINE WBC 0-1 wbc/hpf (0-1) URINE EPITHELIAL CELLS 0-1 EPI/hpf (0-5) URINE BACTERIA NONE SEEN (NONE SEEN) URINE COMMENT CULT NOT INDICATED URINE CULTURES ARE SET-UP BASED ON THE FOLLOWING CRITERIA:POSITIVE NITRITEPOSITIVE LEUKOCYTE ESTERASEGREATER THAN 10 WHITE BLOOD CELLSMODERATE (2+) OR GREATER BACTERIA CBC w Diff: (GERARDO: 08/31/2016 21:10) ( MsgRcvd 08/31/2016 22:41) Final results Test Result Flag Units (Reference) WHITE BLOOD COUNT 14.0 H K/uL (4.5-11.5) RED BLOOD COUNT 3.29 L M/uL (4.00-5.20) HEMOGLOBIN 9.9 L gm/dL (12.0-16.0) HEMATOCRIT 30.6 L % (36.0-46.0) MEAN CELL VOLUME 93 fL (80-100) MEAN CORPUSCULAR HGB 30 pg (26-34) MEAN CORPUSCULAR HGB CONC 32 g/dL (31-37) RED CELL DISTRIBUTION WIDTH 15.7 H % (11.6-14.8) PLATELET COUNT Test not performed K/uL (150-400) Platelets clumped per smear review. Unable to determineaccurate platelet count. NEUTROPHIL % 78.6 H % (50-75) LYMPH % 8.4 L % (25-40) MONO % 9.5 % (3-14) EOSINOPHIL % 3.2 % (0-4) BASOPHIL % 0.3 % (0-2) PT with INR: (GERARDO: 08/31/2016 21:10) ( [facility] 08/31/2016 21:59) Final results Test Result Flag Units (Reference) INR 1.1 (0.8-1.2) Low Intensity Therapy: INR 1.5-2.0 PT range 18.5-23.1Mod.Intensity Therapy: INR 2.0-3.0 PT range 23.1-31.5High Intensity Therapy: INR 2.5-3.5 PT range 27.4-35.5High Intensity Therapy 2: INR 3.0-4.0 PT range 31.5-39.3 BNP: (GERARDO: 08/31/2016 21:50) ( [facility] 08/31/2016 23:05) Final results Test Result Flag Units (Reference) B-TYPE NATRIURETIC PEPTIDE 41.9 pg/ml (5-100) Lactate, Serum: (GERARDO: 08/31/2016 21:50) ( [facility] 08/31/2016 22:27) Final results Test Result Flag Units (Reference) LACTIC ACID 2.6 H mmol/L (0.4-2.0) Lipase: (GERARDO: 08/31/2016 21:10) ( [facility] 08/31/2016 21:36) Final results Test Result Flag Units (Reference) LIPASE 116 U/L (73-393) CHEM 13 PANEL: (GERARDO: 08/31/2016 21:10) ( [facility] 08/31/2016 21:36) Final results Test Result Flag Units (Reference) GLUCOSE 122 H mg/dL (70-110) BUN 64 H mg/dL (7-18) CREATININE 1.0 mg/dL (0.6-1.3) Estimated GFR 55.49 mL/min Estimated GFR- >60 mL/min Note: Persistent reduction over 3 months in eGFR<60 mL/min/1.73 m2 defines CKD. Patients with eGFR values>=60 mL/min/1.73 m2 may also have CKD if evidence ofpersistent proteinuria. Additional information may be foundat www.kidney.org. SODIUM 146 H mmol/L (136-145) POTASSIUM 4.2 mmol/L (3.5-5.1) CHLORIDE 110 H mmol/L (98-107) CARBON DIOXIDE 27 mmol/L (21-32) CALCIUM 8.8 mg/dL (8.5-10.1) TOTAL PROTEIN 5.7 L g/dL (6.4-8.2) ALBUMIN 3.1 L g/dL (3.3-5.0) BILIRUBIN, TOTAL 0.4 mg/dL (0.0-1.0) ALKALINE PHOSPHATASE 92 U/L (46-116) AST (SGOT) 17 U/L (15-37) ALT (SGPT) 15 U/L (12-78) CPK 17 L U/L (24-260) MAGNESIUM 1.8 mg/dL (1.8-2.4) TROPONIN I <0.05 ng/mL (0.00-1.5) TROPONIN REFERENCE RANGE:<0.1 NEGATIVE0.1-1.5 INDETERMINANT>1.5 POSITIVE . PROGRESS AND PROCEDURES Course of Care: Lactate, needs UA 22:39 08/31/16. BUN 60 but CCR only 55. Will order IVF. Will order CT and consult with Rad re contrast. 23:15 08/31/16. Stool black, not stickey, strongly heme positive. Will do CT wo contrast. Can repeat with contrast if needed. 00:47 09/01/16. CT was negative, NG and OG could not be passed despite one attempt by the RN and two attempts by me. Pt was discussed with Dr Iraheta. He and I were concerned about the possibility of bowel ischemia although CT is re assuring. The plan was ICU admit, hydrate, oxygen and ulloa. Dr Solomon has come to the ED and has written admit orders. Disposition orders written. Disposition: Admitted. CLINICAL IMPRESSION ABDOMINAL PAIN GI BLEED ELEVATED LACTATE ATRIAL FIBRILLATION. (Electronically signed by Kwesi Orellana MD 09/01/2016 10:11)
--- NOTE | 2016-09-01 00:53 | ED NURSING NOTES ---
Clinical Report - Nurses [facility] [address] [place] [address] 08/31/2016 20:15 Patient: KLAUS PEREZ TRIAGE Triage time 20:Aug 31 2016. Acuity: LEVEL 3. Chief Complaint: ABDOMINAL PAIN and NAUSEA. SEPSIS SCREEN: Sepsis Screen. Negative (no infection suspected/documented). --20:28 Asim Pryor R.N. 20:24 08/31/16. BP: 115/67. HR: 99. RR: 16. O2 saturation: 95% on room air. Temp: 98.7 F. Pain level now: 0/10. --20:28 Asim Pryor R.N. Weight: 97 kg stated. Height/Length: 60 inches Per Patient. BMI: 41.8. --20:23 Asim Pryor R.N. Medications Carvedilol 3.125 1 tablet PO BID. --21:00 Asim Pryor R.N. Celexa 20 mg tablet daily. --21:02 Asim Pryor R.N. Cranberry 450 mg tablet BID. --21:02 Asim Pryor R.N. Furosemide 40 mg tablet daily. --21:02 Asim Pryor R.N. Gabapentin 100 mg capsule daily. --21:02 Asim Pryor R.N. Levothyroxine 88 mcg tablet daily. --21:02 Asim Pryor R.N. Lidocaine 5% (700 mg patch) apply 1 patch as needed up to 12 hrs. --21:03 Asim Pryor R.N. Mirtazapine 7.5 tablet QHS. --21:03 Asim Pryor R.N. Plavix 75 mg tablet daily. --21:03 Asim Pryor R.N. Potassium chloride 20 mEq daily. --21:03 Asim Pryor R.N. Primidone 50 mg tablet BID. --21:04 Asim Pryor R.N. Probiotic 20 billion cell capsule. --21:04 Asim Pryor R.N. Tramadol 50 mg tablet PRN pain. --21:04 Asim Pryor R.N. Tylenol 650 mg daily as needed. --21:05 Asim Pryor R.N. Vitamin D3 1,000 unit capsule daily. --21:05 Asim Pryor R.N. Allergies No Known Drug Allergy. --20:25 Asim Pryor R.N. History Arrived by EMS. Historian: patient (EMS). This started yesterday. She has had nausea and abdominal pain. ( Last BM 08/30/16.). Last oral intake by patient was this afternoon. 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 PAST MEDICAL HX: Immunizations: up-to-date. SOCIAL HX: Never smoker. No alcohol use or drug use. No recent travel. No infectious disease exposure. No known contact with a sick individual. FALL RISK ASSESSMENT: Fall risk assessment completed. No fall risk identified. NUTRITIONAL RISK ASSESSMENT: The nutritional risk assessment revealed no deficiencies. FUNCTIONAL ASSESSMENT: Functional assessment: no impairments noted. LEARNING NEEDS ASSESSMENT: The learning needs assessment revealed no barriers. ABUSE ASSESSMENT: Abuse assessment: The patient was asked "Do you feel safe in your home?". SKIN INTEGRITY ASSESSMENT: Skin integrity risk assessment completed. No skin integrity risk identified. --20:28 Asim Pryor R.N. ( Pt was at home trying to have a bowel movement. She has been having generalized abdominal pain today. While on the toilet, Pt became light headed and dizzy. EMS was called. She was orthostatic for them when ambulating to their stretcher. Pt reported nausea and pain upon arrival to the ED.). --20:34 Asim Pryor R.N. PROBLEMS: Pneumonia. Abnormal Test. Chest Pain. Arrhythmia. Atrial Fibrillation. Thyroid Disease. Hypertension. Hyperlipidemia. --20:26 Asim Pryor R.N. ADDITIONAL SURGERIES: Appendectomy. CA of uterus=hysterectomy. Cholecystectomy. Oophorectomy. Salpingectomy. Tonsillectomy & Adenoidectomy. --20:26 Asim Pryor R.N. Interventions ID band on patient. --20:28 Asim Pryor R.N. PHYSICAL ASSESSMENT To room via stretcher. GENERAL / NEURO / PSYCH: Alert. Appears in no acute distress. HEENT: Mucous membranes are pink. RESPIRATORY: Respirations not labored. CVS: Cardiac rhythm: atrial fibrillation; (per EMS cardiac strip). Capillary refill less than 2 seconds. GI / : Abdominal tenderness. Bowel sounds within normal limits. SKIN: Skin is warm and dry. --20:31 Asim Pryor R.N. NURSING PROGRESS NOTES The plan of care for this patient has been created. Monitoring of patient in place. Head of bed elevated. Reassurance given. Two patient identifiers checked. Side rails up x 2. Bed placed in lowest position. Patient ready for evaluation- ED physician notified. --20:32 Asim Pryor R.N. 20:53 08/31/2016 Site #1 started via IV in the right hand with an 20g angiocath, with good blood return; one attempt. Saline lock flushed with 10 mL saline. --20:53 Asim Pryor R.N. ( Pt resting in bed, denies nausea or pain, resting with her eyes closed, IVIP. Lab in to draw blood at this time. Pt is refusing ordered Zofran at this time.). --21:06 Asim Pryor R.N. 21:21 08/31/16. BP: 115/67. HR: 113. RR: 15. O2 saturation: 97% on room air. Pain level now: 0/10. --21:23 Asim Pryor R.N. ( Pt up to restroom to obtain urine sample, she did c/o some dizziness when she was sitting up but Pt was able to get back to bed without difficulty. in to see Pt.). --21:23 Asim Pryor R.N. Patient ID band checked for patient name and birthdate: patient confirmed. Blood samples drawn by lab per protocol ; labeled in presence of the patient and sent to lab. Patient ID band checked for patient name and birthdate: patient confirmed. Instructions provided to collect clean catch urine and patient verbalized understanding. Clean catch urine collected with return of yellow-colored urine; sample sent to lab for urinalysis. Specimen labeled in the presence of the patient. --21:23 Asim Pryor R.N. 21:37 08/31/2016 Zofran IV 8 mg (NOW) was refused by patient because nausea is gone. Asim Pryor --21:37 Asim Pryor R.N. EKG time: (2100 PM). EKG was ordered, performed by a tech and shown to the ED physician. --21:50 Lizbeth Mix 22:36 08/31/16. BP: 139/63. HR: 91. RR: 14. O2 saturation: 94% on room air. Pain level now: 0/10. --22:37 Asim Pryor R.N. ( Assisted Pt up to commode. Pt had a BM that is bloody in appearance. Sample collected, Pt back in bed, tele in place, Pt refusing BP cuff at this time, started IVF as ordered, waiting for CT.). --22:55 Asim Pryor R.N. 22:56 08/31/2016 Started bag #1 1000 mL IV Fluids IV NS (Saline); at 500 mL/hr over 2 hour(s) via site #1 via IV pump. Allergies verified and confirmed 5 rights. IV patency established. IV site checked: no pain, redness, or swelling. IV flushed thoroughly pre- and post-medication administration. --22:56 Asim Pryor R.N. ( Stool is guaiac pos.). --23:00 Asim Pryor R.N. Patient transported to CT by stretcher with tech. --23:19 Asim Pryor R.N. Patient returned from CT by stretcher with tech. --23:29 Patito Shields R.N. ( Pt refused NG tube insertion. at bedside, encouraged Pt to let him try. Pt consented.). --23:56 Asim Pryor R.N. 00:00 09/01/16. BP: 146/89. HR: 92. O2 saturation: 97%. Pain level now: 0/10. --00:01 Asim Pryor R.N. ( Pt's granddaughter, Rigoberto, called. With permission from Pt, gave information over the phone about Pt to Rigoberto about Pt's status. Rigoberto's phone # is [phone]. She will try to call Pt's cell phone in the morning if Pt is still here.). --00:13 Asim Pryor R.N. ( attempted in/out NG placement twice, unsuccessful. Pt tolerated fair. Pt is now resting quietly in her room, lights dimmed, provided with a warm blanket.). --00:39 Asim Pryor R.N. 00:57 09/01/2016 IV Fluids IV NS Discontinued: bag #1 completed. Total amount infused: 1000 mL. IV patency established. IV site checked: no pain, redness, or swelling. IV flushed thoroughly. --00:57 Patito Shields R.N. 00:58 09/01/16. Care transferred and report received (from ALYSE Dailey). --00:58 Trina Long R.N. 02:06 09/01/16. ( Patient assisted to bedside commode. voided 220 ml, assisted back to bed. hospital gown provided. pt politely refused ulloa catheter. states she is not incontinent and can use a bedside commode and her urine can be measured from that.). --02:06 Trina Long R.N. DISPOSITION / DISCHARGE 02:44 09/01/16. Cardiac rhythm: normal sinus rhythm. Condition at departure: improved and stable. The goals identified in the patient's plan of care were met. Admitted to Acute Care. Report was given to a nurse via a phone call. Report included patient's care, treatment, medications, reviewed medication reconcilliation, and condition (including any recent changes or anticipated changes). All questions were answered. (ALYSE Duque). Patient's personal items include: pajamas and purse; items were placed in belongings bag. --02:44 Trina Long R.N. 02:44 09/01/16. BP: 136/76. HR: 84. RR: 16. O2 saturation: 95%. Temp: 98.4 F. Pain level now 0/10. --02:44 Trina Long R.N. Locked/Released at 09/01/2016 2:47 by Trina Long R.N.
--- NOTE | 2016-09-01 00:53 | ED ORDER SUMMARY ---
..... Patient: KLAUS PEREZ OrderSheet [facility] VisitID: [id number] [place] [address] 89y, F Registration Date/Time: 08/31/2016 ORDER SHEET Weight: 97.0 kg (stated) Allergies: No Known Drug Allergy GENERAL ORDERS: Senior Living Advisor (Continuous) (20:35 08/31/2016 Renee STRONG) (20:53 MCook R.N.) Lipase Urgent (20:35 08/31/2016 Renee STRONG) (21:09 MCook R.N.) UA-Culture if indicated Urgent (20:35 08/31/2016 Renee STRONG) (21:21 MCook R.N.) Cardiac Panel Stat (20:35 08/31/2016 Renee STRONG) (21:09 MCook R.N.) PT with INR Urgent (20:35 08/31/2016 Renee STRONG) (21:09 MCook R.N.) Pulse oximeter (20:35 08/31/2016 Renee STRONG) (20:53 MCook R.N.) EKG - ER Stat (20:35 08/31/2016 Renee STRONG) (20:53 MCook R.N.) - (CATH UA IF WE DON'T ALREADY HAVE ONE) (21:28 08/31/2016 Jana STRONG) (21:36 MCook R.N.) Lactate, Serum Urgent (21:30 08/31/2016 Jana STRONG) (21:36 MCook R.N.) BNP Urgent (22:38 08/31/2016 Jana STRONG) (Ack 22:41 Jessica) (22:55 MCook R.N.) CT Abd/Pel wo Cont Urgent (22:40 08/31/2016 Jana STRONG) (Ack 22:41 Jessica) (23:26 MCook R.N.) - (In and out NG (if blood present)) (23:16 08/31/2016 Jana STRONG) (0:38 MCook R.N.) Friend Catheter (02:02 09/01/2016 Jana STRONG) (Cancelled: Patient Refusal2:05 Shila Moody) MEDICATION ORDERS: IV FLUIDS: IV Saline Lock (20:35 08/31/2016 Renee STRONG) (20:53 Master WangNRema) Zofran IV 8 mg (NOW) (20:36 08/31/2016 Renee STRONG) (21:37 Master Moody) IV NS : initial bolus none -, then 500 mL/hr for 2h (NOW); Urgent (22:38 08/31/2016 Jana STRONG) (22:56 Master Martino.Alyssa) ORDER SHEET NOTES: [Electronically signed by Trina Long R.N. (02:47 09/01/2016)] [Electronically signed by Kwesi Orellana MD (10:11 09/01/2016)] [Electronically locked/signed by Trina Long R.N. (02:47 09/01/2016)]
--- NOTE | 2016-09-01 01:27 | Progress Note ---
Subjective General Full note dictated: Patient is an 89 y.o female who presented to the ER with hx of 2 days of abdominal pain and not getting better. Has black stool on exam she didn't notice and is being admitted for UGIB. Is with afib on plavix. Some meloxicam use as well. A: UGIB, afib,abdominal pain P: monitor hct, surgical consult, PPI, hold plavix and nsaids.
--- NOTE | 2016-09-01 02:16 | HISTORY AND PHYSICAL ---
ADMITTED: 09/01/2016 CHIEF COMPLAINT: 1. Abdominal pain HISTORY OF PRESENT ILLNESS: The patient is an 89-year-old female who presented to the emergency department with a 2-day history of abdominal pain, not getting better. She states she really did not notice much else, other than a little bit of nausea. In the emergency department, she was found to have guaiac-positive stools and black stools and is being admitted with upper gastrointestinal bleed and abdominal pain. MEDICAL/SURGICAL HISTORY: Past medical history: She has had atrial fibrillation, hypertension, hypothyroidism, hyperlipidemia, degenerative joint disease, hypertension, gastroesophageal reflux, and depression. Her surgeries, appendectomy, hysterectomy, cholecystectomy, oophorectomy, tonsillectomy and adenoidectomy. She has had a hospitalization last on 08/24/2013 with the chest discomfort. She is up-to-date on her shots as far as she recalls. MEDICATIONS: 1. Carvedilol 3.125 p.o. b.i.d. 2. Celexa 20 mg p.o. daily. 3. Cranberry 400 mg p.o. b.i.d. 4. Furosemide 40 mg daily. 5. Gabapentin 100 mg daily. 6. Levothyroxine 88 mcg daily. 7. Lidocaine patch, 1 patch q.12 hours as needed. 8. Mirtazapine 7.5 mg p.o. at bedtime. 9. Plavix 75 mg p.o. daily. 10. Potassium chloride 20 mEq p.o. daily. 11. Primidone 50 mg p.o. b.i.d. 12. Probiotic 20 billion cell capsule. 13. Tramadol 50 mg p.o. q.4 hours p.r.n. pain. 14. Tylenol 650 mg p.o. q.4 hours p.r.n. pain. 15. Vitamin D 1000 international units daily. 16. She used to be on Meloxicam 15 mg p.o. daily. She states that she takes this as needed and has not taken it recently. ALLERGIES: 1. NONE KNOWN. CODE STATUS: DO NOT RESUSCITATE/DO NOT INTUBATE. SOCIAL HISTORY: She is . 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 She denies any tobacco, alcohol, or drugs. She lives with her daughter and granddaughter. FAMILY HISTORY: Father of an accidental . The mom of heart disease at age 86. REVIEW OF SYSTEMS: She states she has had this abdominal pain that just was not getting better. She has a little bit of nausea. She has never noticed the black stools that she does have. She also denies any weakness or dizziness. She states she has not been getting up out of bed much recently. Denies chest pain or shortness of breath. PHYSICAL EXAMINATION: GENERAL: She is an alert female who is conversant and appropriate, in no apparent distress. VITAL SIGNS: Her blood pressure is 115/67, heart rate of 99, respirations 16, temperature is 98.7, and saturating 95% on room air. HEENT: Extraocular movements intact. Pupils equal, round, and reactive to light. Oropharynx is with moist mucous membranes. She does not have any teeth. NECK: Supple without lymphadenopathy, jugular venous distention or bruits. LUNGS: Clear to auscultation bilaterally. HEART: Regular rate and rhythm. ABDOMEN: Tender to palpation diffusely, nonfocal, but seems to be a little bit more in the upper abdominal region and asked me not to press on her. GENITOURINARY/RECTAL: Per emergency department doctor, showed black stool, guaiac-positive. EXTREMITIES: Her legs have +1 edema bilaterally. NEUROLOGIC: Otherwise appears grossly intact. IMPRESSION: 1. This is an 89-year-old female with atrial fibrillation on Plavix 2. Upper gastrointestinal bleed. 3. Abdominal pain, possible ulcer PLAN: Monitor hematocrit serially. Transfuse as indicated. We will have a surgical consultation with likely upper endoscopy tomorrow as long as she is stable.
--- NOTE | 2016-09-01 07:17 | CONSULTATION REPORT ---
DATE OF CONSULTATION: 09/01/2016 CHIEF COMPLAINT: 1. Abdominal pain HISTORY OF PRESENT ILLNESS: The patient is an 89-year-old female with a few day history, according to her, of abdominal pain. The pain worsened the day before admission. She described it as being a steady, constant, sharp, periumbilical pain, nonradiating, localized, not associated with nausea, vomiting, fever or chills. The patient states that she has had diarrhea. She denies any bright red blood, but states that the stool has been black. She has no prior history of peptic ulcer disease. She is presently on Plavix 75 mg daily and Tylenol for pain on a p.r.n. basis. She also states that her appetite is decreased. She states that she has never had pain like this before. She was evaluated in the emergency department by Dr. Orellana and admitted to [facility] by Dr. Solomon. The patient's primary care provider is Dr. Story. At present, the patient does not appear to be in any acute distress, although she still states that she does have abdominal pain, not quite as intense as it was on admission. MEDICAL/SURGICAL HISTORY: History of atrial fibrillation, hypertension, hypothyroidism, degenerative joint disease, depression, and gastroesophageal reflux. She is status post tonsillectomy, adenoidectomy, status post appendectomy, status post total abdominal hysterectomy and bilateral salpingo-oophorectomy for uterine cancer, status post cholecystectomy. MEDICATIONS: 1. Carvedilol 3.125 mg b.i.d. 2. Celexa 20 mg daily. 3. Cranberry 400 mg b.i.d. 4. Furosemide 40 mg daily. 5. Gabapentin 100 mg daily. 6. Levothyroxine 88 mcg daily. 7. Lidocaine patch, 1 patch q.12 hours p.r.n. 8. Mirtazapine 7.5 mg at bedtime. 9. Plavix 75 mg daily. 10. Potassium chloride 20 mEq daily. 11. Primidone 50 mg b.i.d. 12. Probiotic 20 billion cell capsule. 13. Tramadol 50 mg q.4 hours p.r.n. pain. 14. Tylenol 650 mg every 4 hours p.r.n. pain. 15. Vitamin D 1000 mg daily. 16. Meloxicam 50 mg p.o. daily p.r.n. ALLERGIES: 1. NONE. SOCIAL HISTORY: She is . She lives with her daughter, son-in-law and granddaughter, The patient has 2 sons and 1 daughter. They are alive and well. The patient does not smoke, does not drink alcohol, does not use recreational drugs. 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 FAMILY HISTORY: Mother is , age 86, heart disease. Father , age 28, airplane accident. No brothers. No sisters. REVIEW OF SYSTEMS: G3, P3, AB0. Menarche at age 13. First full-term at age 27. Last menstrual period approximately age 67. Last mammogram 3 years ago. Last colonoscopy, she cannot remember. The patient denies any history of hepatitis, jaundice, rheumatic fever, heart murmurs requiring antibiotics, bleeding tendencies, or blood transfusions. The patient also denies any recent chest pain, shortness of breath, orthopnea, claudication, lower extremity swelling, night sweats, fevers, chills, syncopal episodes, seizure activities, blackouts, dysuria, hematuria, pyuria. Remaining 12 point review is negative. PHYSICAL EXAMINATION: VITAL SIGNS: On admission from the emergency room, her blood pressure 115/67, pulse 99, respirations 16, temperature is 98.7. On consultation, her vital signs: Blood pressure 139/67, respirations 18, pulse 86, temperature 98.4. GENERAL: Awake, alert, conversant and does not appear to be in any acute distress. HEENT: Normocephalic, atraumatic. Pupils equal and reactive. No scleral icterus. External auditory canals clear. No nasal septal defect or discharge. Throat is not injected. Moist mucous membranes. The patient is edentulous. Several teeth are missing. NECK: Supple. No JVD, carotid bruit or adenopathy. LUNGS: Clear. No rales, rhonchi, or wheezing. Room air O2 saturation 92%. HEART: Irregular irregular rhythm. No murmurs that I can appreciate. ABDOMEN: Nondistended. Hypoactive bowel sounds. No discoloration. No abdominal aortic or iliac bruits appreciable. The patient is tender in the periumbilical, epigastric , right and left upper quadrant to palpation. No guarding. No masses appreciable. EXTREMITIES: Full range of motion, 4+ femoral pulses palpation, 4+ dorsalis pedis bilaterally. SKIN: Warm and dry with no peripheral cyanosis. LYMPHATICS: No cervical, supraclavicular, axillary, or groin adenopathy. NEUROLOGIC: The patient is grossly intact with no focal motor neurological deficit. LAB/IMAGING: On admission, white count 14.0, hemoglobin and hematocrit 9.9 and 30.6 respectively. INR 1.1. BNP 41.9, lactic acid 2.6 slightly elevated, lipase 116, glucose 122, BUN 64, creatinine 1.0. Electrolytes within normal limits. Liver function studies within normal limits with total bilirubin 0.4, alkaline phosphatase 92, SGOT 17, SGPT 15. The patient underwent a CAT scan in the emergency room. It was interpreted by Dr. Phillips, which shows no evidence of acute process, noted to have extensive sigmoid diverticulosis, noted to have moderate cardiomegaly with trace right effusion. In the emergency department, she was also noted to have guaiac-positive stools. At 3 a.m. this morning, her hematocrit had dropped to 28.5 after hydration. IMPRESSION: 1. Possible upper gastrointestinal bleed secondary to peptic ulcer disease. I doubt ischemic bowel. 2. She does have some prerenal azotemia. PLAN: Will require hydration and judicious monitoring of her hemoglobin and hematocrit. We will schedule her for an upper gastrointestinal endoscopy. The procedure has been explained to the patient, including the potential risks. The patient understands and agrees to proceed. We will schedule appropriately.
[2016-09-01] MEDS ORDERED: CARVEDILOL3.125 MG PO (07:26)
[2016-09-01] MEDS ORDERED: CRANBERRY450 MG (07:26)
[2016-09-01] MEDS ORDERED: CELEXA20 MG PO (07:26)
[2016-09-01] MEDS ORDERED: FUROSEMIDE40 MG PO (07:26)
[2016-09-01] MEDS ORDERED: LEVO-T88 MCG (07:27)
[2016-09-01] MEDS ORDERED: GABAPENTIN100 MG (07:27)
[2016-09-01] MEDS ORDERED: LIDODERM5 % TOP (07:28)
[2016-09-01] MEDS ORDERED: MIRTAZAPINE15 MG PO (07:28)
[2016-09-01] MEDS ORDERED: POTASSIUM CHLO10 ME2 PO (07:29)
[2016-09-01] MEDS ORDERED: PLAVIX75 MG PO (07:29)
[2016-09-01] MEDS ORDERED: PRIMIDONE50 MG PO (07:29)
[2016-09-01] MEDS ORDERED: TRAMADOL HCL50 MG PO (07:30)
--- NOTE | 2016-09-01 10:11 | ED DISCHARGE INSTRUCTIONS ---
Patient: KLAUS PEREZ General Instructions [facility] VisitID: [id number] [address] [place] [address] 89y, F Registration Date/Time: 08/31/2016 ABDOMINAL PAIN GI BLEED ELEVATED LACTATE ATRIAL FIBRILLATION. (Electronically signed by Kwesi Orellana MD 09/01/2016 10:11)
--- NOTE | 2016-09-01 10:11 | ED MED RECONCILIATION SUMMARY ---
Patient: KLAUS PEREZ Medication Reconciliation Report [facility] VisitID: [id number] [address] [place] [address] 89y, F Registration Date/Time: 08/31/2016 Weight: 97.0 kg Height/Length: 60 in. BMI: 41.8 ALLERGIES: No Known Drug Allergy The patient's Home Medications are listed below: THE FOLLOWING MEDICATIONS NEED TO BE RECONCILED: Carvedilol 3.125 1 tablet PO BID Celexa 20 mg tablet daily Cranberry 450 mg tablet BID Furosemide 40 mg tablet daily Gabapentin 100 mg capsule daily Levothyroxine 88 mcg tablet daily Lidocaine 5% (700 mg patch) apply 1 patch as needed up to 12 hrs Mirtazapine 7.5 tablet QHS Plavix 75 mg tablet daily Potassium chloride 20 mEq daily Primidone 50 mg tablet BID Probiotic 20 billion cell capsule Tramadol 50 mg tablet PRN pain Tylenol 650 mg daily as needed Vitamin D3 1,000 unit capsule daily The source(s) of the original Home Medication information: Not obtained. The following Medications were given to the patient in the Emergency Department: IV NS IV Fluids bolus 0, then 500 mL/hr, administered: 08/31/2016 10:56:00 PM The following Medications were prescribed to the patient: None.
--- NOTE | 2016-09-01 10:11 | ED MAR SUMMARY ---
..... Medication Administration Record [facility] [address] [place] [address] Patient: KLAUS PEREZ Visit ID: [id number] 89y, F Weight: 97.0 kg Height/Length: 60 in BMI: 41.8 ALLERGIES: No Known Drug Allergy Start 22:56 08/31/2016 Asim Pryor RFlorian, Stop 00:57 09/01/2016 Patito Sheilds RFlorian Medication Administered: IV NS (SALINE), Dose: IV Fluids over 2 hour(s), Rate: 500 mL/hr, Dispensed: 1000 mL bag, Site: #1 right hand. Medication Ordered: IV NS : initial bolus none -, then 500 mL/hr for 2h (NOW); Urgent.
--- NOTE | 2016-09-01 10:11 | ED DISCHARGE INSTRUCTIONS ---
Patient: KLAUS PEREZ General Instructions [facility] VisitID: [id number] [address] [place] [address] 89y, F Registration Date/Time: 08/31/2016 ABDOMINAL PAIN GI BLEED ELEVATED LACTATE ATRIAL FIBRILLATION. (Electronically signed by Kwesi Orellana MD 09/01/2016 10:11)
--- NOTE | 2016-09-01 10:11 | ED MAR SUMMARY ---
..... Medication Administration Record [facility] [address] [place] [address] Patient: KLAUS PEREZ Visit ID: [id number] 89y, F Weight: 97.0 kg Height/Length: 60 in BMI: 41.8 ALLERGIES: No Known Drug Allergy Start 22:56 08/31/2016 Asim Pryor RFlorian, Stop 00:57 09/01/2016 Patito Shields RFlorian Medication Administered: IV NS (SALINE), Dose: IV Fluids over 2 hour(s), Rate: 500 mL/hr, Dispensed: 1000 mL bag, Site: #1 right hand. Medication Ordered: IV NS : initial bolus none -, then 500 mL/hr for 2h (NOW); Urgent.
--- NOTE | 2016-09-01 10:11 | ED MED RECONCILIATION SUMMARY ---
Patient: KLAUS PEREZ Medication Reconciliation Report [facility] VisitID: [id number] [address] [place] [address] 89y, F Registration Date/Time: 08/31/2016 Weight: 97.0 kg Height/Length: 60 in. BMI: 41.8 ALLERGIES: No Known Drug Allergy The patient's Home Medications are listed below: THE FOLLOWING MEDICATIONS NEED TO BE RECONCILED: Carvedilol 3.125 1 tablet PO BID Celexa 20 mg tablet daily Cranberry 450 mg tablet BID Furosemide 40 mg tablet daily Gabapentin 100 mg capsule daily Levothyroxine 88 mcg tablet daily Lidocaine 5% (700 mg patch) apply 1 patch as needed up to 12 hrs Mirtazapine 7.5 tablet QHS Plavix 75 mg tablet daily Potassium chloride 20 mEq daily Primidone 50 mg tablet BID Probiotic 20 billion cell capsule Tramadol 50 mg tablet PRN pain Tylenol 650 mg daily as needed Vitamin D3 1,000 unit capsule daily The source(s) of the original Home Medication information: Not obtained. The following Medications were given to the patient in the Emergency Department: IV NS IV Fluids bolus 0, then 500 mL/hr, administered: 08/31/2016 10:56:00 PM The following Medications were prescribed to the patient: None.
--- NOTE | 2016-09-01 12:57 | OPERATIVE REPORT ---
DATE OF SURGERY: 09/01/2016 SURGEON: Santos Iraheta III, MD BILL OF MATERIALS CLERK: None. PREOPERATIVE DIAGNOSIS: 1. Rule out peptic ulcer disease POSTOPERATIVE DIAGNOSIS: 1. Prepyloric ulcer PROCEDURE PERFORMED: 1. Upper gastrointestinal endoscopy ANESTHESIA: TIVA, posterior pharynx Cetacaine spray. INDICATIONS: The patient is an 89-year-old female admitted via the emergency department where she presented with abdominal pain, heme-positive stools and a prehydration hematocrit of 30. She is on Plavix. No prior history of peptic ulcer disease. SURGICAL FINDINGS: Normal-appearing duodenum and duodenal bulb. The prepyloric channel just at its entrance, there was noted to be a superficial ulcer. There is no evidence of old blood or fresh blood in the duodenal or gastric lumen. No evidence of other pathology in the greater or lesser curvature, cardia and fundus of the stomach. The EG junction was approximately 40 cm from the dental incisors and the esophagus appeared grossly normal. SURGICAL TECHNIQUE: The patient was brought to the operating room and placed in the left lateral decubitus position, where she was administered TIVA and monitored closely by anesthesia. After proper anesthesia had taken effect, the posterior pharynx was sprayed with Cetacaine spray, after which an Olympus fiberoptic video flexible upper GI endoscope was passed down the patient's posterior pharynx. The esophagus intubated under direct visualization. The scope passed easily down the esophagus, through the EG junction, which was 40 cm from the dental incisors, into the gastric lumen and eventually into the second and third portion of the duodenum. On withdrawing the scope, the aforementioned findings noted. The scope was withdrawn into the gastric lumen and retroflexed with a good view of cardia, fundus, and EG junction from below, as well as the greater and lesser curvature. No attempt was made at biopsy because the patient had been on Plavix. The scope was withdrawn through the EG junction. The scope was completely withdrawn. The patient tolerated the procedure well and was transferred to the recovery room in stable condition. There were no intraoperative or anesthetic complications.
[2016-09-02] VITALS (14 sets, daily range): BP systolic 92–133; BP diastolic 42–62
--- NOTE | 2016-09-02 06:22 | Progress Note ---
Subjective General 89-year-old female who is status post upper GI endoscopy. Prepyloric ulcer identified. Patient has no complaints this morning. No further abdominal pain. No nausea no vomiting. Tolerating by mouth. Other 12 point review of systems essentially unremarkable Physical Exam Vital Signs / I&Os Vital Signs Time Temp Pulse Resp B/P Pulse O2 O2 Flow FiO2 Ox Delivery Rate 09/02 0349 97.9 89 18 111/46 93 Room Air I&O 09/01 0800 09/01 1600 09/02 0000 Intake Total 0 0 240 Output Total 200 500 650 Balance -200 -500 -410 General Appearance Alert, Oriented X3, Cooperative, No acute distress HEENT Normal exam Lungs Clear to auscultation Abdomen Soft, No tenderness (tender over xiphoid), tender to palpation over xiphoid region Skin no peripheral cyanosis Neurological Normal exam Psych/Mental Status Mental status normal LAB Results Laboratory Tests 09/01 09/01 09/02 0709 0842 0540 Chemistry Plasma Sodium Pending Plasma Potassium Pending Plasma Chloride Pending CO2 (Enzymatic) Pending BUN Pending Creatinine Pending Est GFR ( Amer) Pending Est GFR (Non-Af Amer) Pending Glucose Pending Lactic Acid (0.4 - 2.0 mmol/L) 1.4 Plasma Calcium Pending Hematology WBC (4.5 - 11.5 K/uL) 10.5 RBC (4.00 - 5.20 M/uL) 2.58 Hgb (12.0 - 16.0 gm/dL) 7.8 Hct (36.0 - 46.0 %) 25.4 24.0 MCV (80 - 100 fL) 93 MCH (26 - 34 pg) 30 RDW (11.6 - 14.8 %) 15.9 Neut % (Auto) (50 - 75 %) 62.9 Lymph % (Auto) (25 - 40 %) 14.6 [place] % (Auto) (3 - 14 %) 12.9 Eos % (Auto) (0 - 4 %) 9.4 Baso % (Auto) (0 - 2 %) 0.2 Plt Count, EDTA (150 - 400 K/uL) 176 PUBS MCHC (31 - 37 g/dL) 33 Medications and Allergies Medications Current Medications Sig/Roya Start time Last Medication Dose Route Stop Time Status Admin Mirtazapine 7.5 MG QHS 09/01 2100 AC 09/01 PO 2054 Pantoprazole Sodium 40 MG BID 09/01 2100 AC 09/01 IV 2054 Sucralfate 1 GM ACHS 09/01 1630 AC 09/01 PO 2054 Carvedilol 3.125 MG BIDWC 09/01 0900 AC 09/01 PO 182 Citalopram 20 MG DAILY 09/01 0900 AC 09/01 Hydrobromide PO 08 Furosemide 20 MG DAILY 09/01 0900 AC 09/01 IV 0842 Levothyroxine Sodium 88 MCG DAILY@0600 09/01 0600 AC 09/02 PO 0524 Acetaminophen 650 MG Q6H PRN 09/01 014 AC 09/02 PO 020 Dextrose/Sodium 1,000 ML ASDIRECTED 09/01 014 AC 09/02 Chloride/Electrolyt IV 020 Ondansetron HCl 4 MG Q6H PRN 09/01 014 AC 09/01 PO 2054 Allergies Coded Allergies: NKA (08/24/13) Medical History Medical History Medical History: Hypertension Atrial fibrillation. Hypercholesterolemia Gas esophageal reflux disease Status post tonsillectomy adenoidectomy. Status post appendectomy. Status post total abdominal hysterectomy bilateral salpingo-nephrectomy for uterine cancer Social History Social History With whom do they live? 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 Assessment and Plan Problem List 1. GI bleed Plan Monitor hemoglobin and hematocrit. When stable discharge home on PPIs and Carafate. Recommend repeat upper GI endoscopy in 6-8 weeks to check for healing of ulcer. 2. Abdominal pain Plan Peptic ulcer disease/prepyloric ulcer. Resolution of abdominal pain. Continue to monitor when necessary. Continue PPIs and Carafate.
--- NOTE | 2016-09-02 16:55 | Progress Note ---
Subjective General Pt seen and examined. Patient has no complaints at the moment. There has been no episodes of bleeding overnight, however patients hemoglobin was seen to be low on am blood work. Patient is otherwise stable. Constitutional Denies: Fever, Chills, Sweats, Weakness, Malaise, Other. Eyes Denies: Pain, Vision Change, Conjunctival Inflammation, Eyelid Inflammation, Redness, Other. ENT Denies: Ear Pain, Ear Discharge, Nose Pain, Nasal Discharge, Nasal Congestion, Mouth Pain, Mouth Swelling, Throat Pain, Throat Swelling, Other. Respiratory Denies: Cough, Dry, SOB w/exertion, Wheezing, Hemoptysis, Pleuritic Pain, Sputum , Other. Cardiovascular Denies: Chest Pain, Palpitations, Orthopnea, PND, Edema, Light-headedness, Other. Gastrointestinal Denies: Nausea, Vomiting, Abdominal Pain, Diarrhea, Constipation, Melena, Hematochezia, Other. Genitourinary Denies: Dysuria, Frequency, Incontinence, Hematuria, Retention, Other. Musculoskeletal Denies: Neck Pain, Shoulder Pain, Arm Pain, Back Pain, Hand Pain, Leg Pain, Foot Pain, Other. Skin Denies: Rash, Lesions, Jaundice, Bruising, Other. Neurological Denies: Weakness, Numbness, Incoordination, Change in speech, Confusion, Seizures, Other. Physical Exam Vital Signs / I&Os Vital Signs Date Time Temp Pulse Resp B/P Pulse O2 O2 Flow FiO2 Ox Delivery Rate 04/05 1600 97.9 66 18 94/47 94 04/05 1500 97.5 71 18 106/42 95 04/05 1419 98.2 79 18 100/45 99 04/05 1356 98.2 78 18 107/43 96 04/05 1340 97.9 80 18 108/53 95 04/05 1302 98.2 84 18 92/53 94 04/05 1211 78 18 116/58 96 04/05 1105 98.2 88 18 121/58 98 04/05 1049 98.1 100 18 117/58 96 04/05 1001 70 04/05 0947 131/49 04/05 0946 98.1 92 18 94 04/05 0635 98.1 80 18 122/53 93 04/05 0349 97.9 89 18 111/46 93 Room Air 04/05 0010 Room Air 04/04 2255 98.1 95 18 131/54 93 Room Air 04/04 2000 86 09/01 1948 86 09/01 1822 87 09/01 1759 98.8 87 18 114/52 98 I&O 09/01 0800 09/01 1600 09/02 0000 Intake Total 0 100 240 Output Total 200 500 650 Balance -200 -400 -410 General Appearance Alert, No acute distress, - pt demonstrates baseline confusion, requires prompts to as where she is Lungs Clear to auscultation, Normal air movement Cardiovascular Regular rate and rhythm, No murmurs, gallops, rubs Abdomen Soft, No tenderness, No rebound Extremities No clubbing, - trace edema Skin No Breakdown, No Significant Lesions Neurological Normal tone, Sensation intact, Strength 5/5 x4 ext's, No lateralizing signs Psych/Mental Status Mood normal LAB Results Laboratory Tests 09/02 0540 Chemistry Plasma Sodium (136 - 145 mmol/L) 146 Plasma Potassium (3.5 - 5.1 mmol/L) 4.0 Plasma Chloride (98 - 107 mmol/L) 112 CO2 (Enzymatic) (21 - 32 mmol/L) 27 BUN (7 - 18 mg/dL) 35 Creatinine (0.6 - 1.3 mg/dL) 0.9 Est GFR ( Amer) (mL/min) >60 Est GFR (Non-Af Amer) (mL/min) >60 Glucose (70 - 110 mg/dL) 123 Plasma Calcium (8.5 - 10.1 mg/dL) 8.2 Hematology WBC (4.5 - 11.5 K/uL) 10.5 RBC (4.00 - 5.20 M/uL) 2.58 Hgb (12.0 - 16.0 gm/dL) 7.8 Hct (36.0 - 46.0 %) 24.0 MCV (80 - 100 fL) 93 MCH (26 - 34 pg) 30 RDW (11.6 - 14.8 %) 15.9 Neut % (Auto) (50 - 75 %) 62.9 Lymph % (Auto) (25 - 40 %) 14.6 [place] % (Auto) (3 - 14 %) 12.9 Eos % (Auto) (0 - 4 %) 9.4 Baso % (Auto) (0 - 2 %) 0.2 Plt Count, EDTA (150 - 400 K/uL) 176 PUBS MCHC (31 - 37 g/dL) 33 Assessment and Plan Problem List 1. GI bleed Plan - s/p endoscopy - finding of a shallow ulcer - pt seen to be anemic on am labs - will transfuse two units of blood and repeat cbc - will monitor for improvment 2. Abdominal pain Plan - stable - secondary to gastritis - will continue to monitor - pt place on carafate, bid ppis,- should resolve throughout her course 3. Hypertension Plan - will c/w coreg - pressure has been stable 4. Hypothyroid Plan - c/w current synthroid dose - no signs of hypothryoidism
[2016-09-03 02:25] VITALS: BP 122/49
[2016-09-03 06:43] VITALS: BP 119/56
[2016-09-03 10:28] VITALS: BP 115/59
[2016-09-03 14:42] VITALS: BP 127/51
--- NOTE | 2016-09-03 14:43 | Provider's Discharge Care Plan ---
Problem, Goal, Plan Problem List 1. GI bleed Instructions: - take medications as prescribed 2. Hypertension Instructions: Take meds as directed 3. Hypothyroid Instructions: Take meds as directed
[2016-09-03] MEDS ORDERED: PANTOPRAZOLE SO40 MG PO (14:44)
--- NOTE | 2016-09-03 17:33 | Discharge Summary ---
Discharge Summary Report Admit Date 09/01/16 Discharge Date 09/03/16 Admission Diagnosis low hemoglobin, weakness Discharge Diagnosis gastric ulcer Brief History please refer to admitting H&P Hospital Course Patient was admitted for anemia and was found to be guiac positive. Patients initial hemoglobin was appropriate however the next day the patient was found to have worsening anemia. Patient had an upper endoscopy which showed the presence of a gastric ulcer. Patient was transfused two unit of blood had an appopriate response and kept her hemoglobin at the same range. Patient was able to tolerate a diet. Patient will be discharged home, she will resume all her home medications. Patient will additionally start an oral proton pump inhibitor. Patient is otherwise stable for discharge. General Appearance Alert, Oriented X3, No acute distress Lungs Clear to auscultation Cardiovascular Normal S1, Normal S2, No murmurs, Rubs Abdomen Soft, No tenderness Skin No Breakdown Discharge Instructions/Meds - take meds as prescribed - follow up with your primary care provider
[2016-09-03 18:33] VITALS: BP 108/47
== END 2016-09-03 20:15 | disposition home or self-care (01) | DRG 379 ==
LOC: ED SRH 20:15 → TRANS SRH 09-01 01:12 → ACUTE2 SRH 09-01 01:12 → TRANS SRH 09-01 01:12 → ACUTE2 SRH 09-01 03:39
PROVIDERS: Specialist; ADMIT Family Medicine
PROC: 0DJ08ZZ Inspection of Upper Intestinal Tract, Via Natural or Artificial Opening Endoscopic (ICD-10-PCS; principal; 2016-09-01 15:45)
PROC: 30233N1 Transfusion of Nonautologous Red Blood Cells into Peripheral Vein, Percutaneous Approach (ICD-10-PCS; 2016-09-02)
DX: K25.4 Chronic or unspecified gastric ulcer with hemorrhage (principal); D50.0 Iron deficiency anemia secondary to blood loss (chronic); R55 Syncope and collapse; R39.2 Extrarenal uremia; I48.91 Unspecified atrial fibrillation; Z79.02 Long term (current) use of antithrombotics/antiplatelets; I10 Essential (primary) hypertension; K21.9 Gastro-esophageal reflux disease without esophagitis; F32.9 Major depressive disorder, single episode, unspecified
CPT/HCPCS: 50004; 60001; 82943; 83526; 90001; 90004; 90047; 90074; 90100; 90155; 90616; 91004; 91162; 91163; 91320; 91544; 92031; 92235; 92610; 92720; 94060; 95059; 95070